=== PATIENT | male | born 2005 | race Hispanic/Latino ===

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

== ENCOUNTER 2024-07-07 22:26 | Emergency (ER) | payer OTHER ==
[2024-07-07] MEDS ORDERED: fentaNYL 50 mcg/mL 1 mL Vial ONE (22:47)
[2024-07-07] MEDS ORDERED: Labetalol HCl 100 MG/20 ML VIAL ONE (22:47)
[2024-07-07 23:04] LABS: #Basophils 0.1 thou/uL (0.0-0.2); #Eosinophils 0.3 thou/uL (0.0-0.7); #Monocytes 0.4 thou/uL (0.11-0.59); #Neutrophils 3.3 thou/uL (1.40-6.50); %Basophils 1.3 % (0.0-1.0); %Eosinophils 3.9 % (0.0-10.0); %Monocytes 6.2 % (0.0-4.0); %Neutrophils 46.6 % (31.0-61.0); Hematocrit 47.5 % (42.0-52.0); Hemoglobin 15.1 g/dL (14.0-18.0); Mean Corpuscular HGB CONC 31.8 g/dL (32.0-36.0); Mean Corpuscular Hemoglobin 27.7 pg (25.0-35.0); Mean Platelet Volume 7.2 fL (7.4-10.4); Platelet Count 240 10x3/uL (130-400); RBC Distribution Width 12.3 % (11.5-14.5); Red Blood Cell (RBC) Count 5.46 mill/uL (4.00-5.20); White Blood Cell (WBC) Count 7.2 10x3/uL (4.8-10.8)
[2024-07-07 23:23] LABS: ALT (SGPT) 28 U/L (Less than 45); AST (SGOT) 24 U/L (11-34); Albumin 5.1 g/dL (3.1-4.5); Alkaline Phosphatase 143 U/L (50-130); Anion Gap 18 mmol/L (10-20); BUN (Urea Nitrogen) 19 mg/dL (8.4-21.0); Bilirubin, Total 0.3 mg/dL (0.3-1.2); Calc. Creatinine Clearance 0 mL/min (70-130); Calcium 10.1 mg/dL (7.8-10.44); Carbon Dioxide 25 mmol/L (22-29); Chloride 102 mmol/L (98-107); Estimated GFR 107; Globulin 3.6 g/dL (2.4-3.5); Glucose 92 mg/dL (70-105); Lipase 38 U/L (8-78); Potassium 3.6 mmol/L (3.5-5.1); Protein, Total 8.7 g/dL (6.0-8.3); Sodium 141 mmol/L (136-145)
== END 2024-07-08 00:31 | disposition home or self-care (01) ==
LOC: MADERS 22:26
DX: R07.2 Precordial pain (principal); Z55.6 Problems related to health literacy
CPT/HCPCS: 71045; 71275; 74174; 80053; 83690; 83880; 84484; 85025; 85379; 93005; 96374; 96375; J3010

== ENCOUNTER 2024-12-29 14:55 | Emergency (ER) | payer OTHER | END 2024-12-29 15:38 | disposition home or self-care (01) | LOC: MADERS 14:55 | DX: S90.111A Contusion of right great toe without damage to nail, initial encounter (principal); W01.0XXA Fall on same level from slipping, tripping and stumbling without subsequent striking against object, initial encounter | CPT/HCPCS: 99283 ==